=== PATIENT | male | born 1960 | race Caucasian/White ===

== ENCOUNTER 2019-12-06 19:57 | Emergency (ER) | payer SELFPAY ==
[~2019-12-06] VITALS: Ht 175.3 cm; Wt 63.0 kg
[2019-12-06 20:05] VITALS: BP 154/76
[2019-12-06] MEDS ORDERED: GABA-530 PO (20:34)
== END 2019-12-06 20:54 | disposition home or self-care (01) ==
LOC: ER 20:00
DX: F10.10 Alcohol abuse, uncomplicated (principal); Z88.0 Allergy status to penicillin
CPT/HCPCS: 99281